=== PATIENT | male | born 1945 | race Caucasian/White ===

== ENCOUNTER → 2017-07-17 | Outpatient (CLI) | payer OTHER ==
[~2017-07-17] MED LIST: AMT24 PO; ASPCH81X PO; BUSP5TAB59 PO; CARB10TA4 PO; CARB25TA12 PO; CHOL20007 PO; CLC100X PO; CLON1TAB3 PO; CYAN500T13 PO; DOCU-94 PO; DULO60CA44 PO; ESCI1TAB10 PO; FLM4 PO; FOLI1TAB7 PO; GABA400C PO; GLIM1TAB2 PO; GLIP5TAB3 PO; IBUP-1050 PO; LACT10SO17 PO; LEVO25TA5 PO; MELA3TAB PO; MELATAB2 PO; METF1000 PO; MISCCAP80 PO; NF656 TD; NRT/25 PO; OXYBUTYNIN PO; PRLSR20 PO; PRMT25 PO; PROM25TA PO; RIVASTIGMINE PO; SENN-63 PO; SIMV80TA2 PO; TAPE1TAB9 PO; [UNRECOGNIZED DRUG - CODE] PO
--- NOTE | 2017-07-17 12:01 | DIAGNOSTIC IMAGING REPORT ---
Bilateral inguinal ultrasound CLINICAL HISTORY: K40.90 Inguinal [id number] left inguinal pain COMPARISON STUDY: No previous studies for comparison. FINDINGS: There is a fat-containing right inguinal hernia. No left femoral hernia is visualized. IMPRESSION: 1. Fat-containing right inguinal hernia 2. No left-sided inguinal hernias are visualized ultrasonographically Electronically signed by: Reynaldo Vizcaino M.D. 07/17/2017 12:00 PM Dictated Date/Time: 07/17/2017 11:58 AM
== END | disposition home or self-care (01) ==
LOC: C.ULTR 11:00
PROVIDERS: ATTEND Surgery
DX: K40.90 Unilateral inguinal hernia, without obstruction or gangrene, not specified as recurrent (principal); R10.30 Lower abdominal pain, unspecified

== ENCOUNTER → 2017-08-01 | Day surgery (SDC) | payer OTHER ==
[2017-07-17 09:51] VITALS: Ht 185.4 cm; Wt 87.5 kg
--- NOTE | 2017-07-17 10:47 | PAT Medication Instructions ---
Service Date Jul 17, 2017. Current Home Medication List Aspirin (Aspirin Chewable), 81 MG PO QAM Buspirone Hcl (Buspirone Hcl), 1 TAB PO TID Carbidopa/Levodopa (Sinemet 10MG/100MG), 1 TAB PO AM/PM Carbidopa/Levodopa (Sinemet 25MG/100MG), 1.5 TAB PO NOON Cholecalciferol (Vitamin D3), 1 TAB PO QAM Clonazepam (Klonopin), 1 MG PO HS Cyanocobalamin (Vitamin B12 500MCG), 500 MCG PO QAM Docusate Sodium (Colace), 1 CAP PO HS Duloxetine Hcl (Cymbalta), 60 MG PO QPM Ferrous Sulfate Dried (Eql Slow Release Iron), 160 MG PO QAM Folic Acid (Folvite), 1 MG PO QAM Glimepiride (Glimepiride), 1 TAB PO QAM Ibuprofen (Advil), 800 MG PO PRN Levothyroxine Sodium (Levothyroxine Sodium), 1 TAB PO HS Lubiprostone (Amitiza), 24 MCG PO HS Melatonin (Melatonin Maximum Strengt), 1 TAB PO HS Metformin Hcl (Glucophage), 1,000 MG PO BID Midodrine (Midodrine HCl), 2.5 MG PO AM/NOON Omeprazole (Prilosec), 40 MG PO QAM Probiotic Product (Probiotic), 1 TAB PO NOON Sennosides (Senokot), 1 TAB PO HS Simvastatin (Zocor), 80 MG PO HS Tamsulosin HCl (Tamsulosin HCl), 0.4 MG PO HS [Oxybutynin], 5 MG PO HS [Rivastigmine], 4.5 MG PO BID Medication Instructions For Your Scheduled Surgery -Contact your neurologist for instructions: Midodrine (Midodrine HCl), 2.5 MG PO AM/NOON - Contact your surgeon for instructions for: Ibuprofen (Advil), 800 MG PO PRN - Hold the following medications 5 days prior to surgery per your surgeon's instructions: Aspirin (Aspirin Chewable), 81 MG PO QAM - Hold the following medications 48 hours prior to surgery: Metformin Hcl (Glucophage), 1,000 MG PO BID - Hold the following medications the morning of surgery: Ferrous Sulfate Dried (Eql Slow Release Iron), 160 MG PO QAM Folic Acid (Folvite), 1 MG PO QAM Glimepiride (Glimepiride), 1 TAB PO QAM Cyanocobalamin (Vitamin B12 500MCG), 500 MCG PO QAM Cholecalciferol (Vitamin D3), 1 TAB PO QAM Carbidopa/Levodopa (Sinemet 10MG/100MG), 1 TAB PO AM/PM (per surgeon's instructions) - Take the following medications the morning of surgery with a sip of water: Omeprazole (Prilosec), 40 MG PO QAM Buspirone Hcl (Buspirone Hcl), 1 TAB PO TID [Rivastigmine], 4.5 MG PO BID - Take the following medications as scheduled the night before surgery: [Oxybutynin], 5 MG PO HS Sennosides (Senokot), 1 TAB PO HS Simvastatin (Zocor), 80 MG PO HS Tamsulosin HCl (Tamsulosin HCl), 0.4 MG PO HS Clonazepam (Klonopin), 1 MG PO HS Buspirone Hcl (Buspirone Hcl), 1 TAB PO TID Levothyroxine Sodium (Levothyroxine Sodium), 1 TAB PO HS Lubiprostone (Amitiza), 24 MCG PO HS Melatonin (Melatonin Maximum Strengt), 1 TAB PO HS Probiotic Product (Probiotic), 1 TAB PO NOON Docusate Sodium (Colace), 1 CAP PO HS Duloxetine Hcl (Cymbalta), 60 MG PO QPM [Rivastigmine], 4.5 MG PO BID Carbidopa/Levodopa (Sinemet 10MG/100MG), 1 TAB PO AM/PM Carbidopa/Levodopa (Sinemet 25MG/100MG), 1.5 TAB PO NOON If you have any questions please call us at [phone] or [phone] or [phone]
[~2017-08-01] VITALS: Ht 185.4 cm; Wt 87.5 kg
[~2017-08-01] MED LIST changes: +ATROPINE SULFATE 0.1 MG/ML 5ML SYR IV PRN; +BUPIVACAINE/EPINEPHRINE 0.5% MPF 1:200,000 30 ML VIAL ONE; -CARB10TA4 PO; +CARB10TA5 PO; -CLC100X PO; +CLINDAMYCIN IV 900 MG in DEXTROSE 5% 50ML 44 ML IV SCH; -CLON1TAB3 PO; +CLON1TAB4 PO; +DEXAMETHASONE SOD INJ 4 MG/ML VIAL ONE; -ESCI1TAB10 PO; +FENTANYL CITRATE INJ 50 MCG/1 ML 2 ML VIAL IV PRN; +FENTANYL CITRATE INJ 50 MCG/1 ML 2 ML VIAL ONE; -FOLI1TAB7 PO; +FOLI1TAB8 PO; -GABA400C PO; -GLIP5TAB3 PO; +HYDR-5688 PO; +HYDROCODONE/ACETAMIN 5/325MG TAB PO PRN; +KETOROLAC TROMETHAMINE 30 MG/ML VIAL IV. PRN; -LACT10SO17 PO; +LACTATED RINGER'S 1000ML 1,000 ML IV SCH; +LIDOCAINE HCL 2% 2 ML VIAL (20MG/ML) ONE; -MELA3TAB PO; -NF656 TD; -NRT/25 PO; +ONDANSETRON INJ 2 MG/ML 2 ML VIAL IV PRN; +ONDANSETRON INJ 2 MG/ML 2 ML VIAL ONE; -PROM25TA PO; +PROPOFOL IV EMULSION 10 MG/ML 20 ML VIAL IV ONE; +SODIUM CHLORIDE 0.9% 1000ML 1,000 ML IV SCH; -TAPE1TAB9 PO
[2017-08-01 07:37] VITALS: BP 151/92; PULSE 77; TEMP 36.7; O2SAT 94
--- NOTE | 2017-08-01 08:46 | History & Physical Bridge Note ---
H&P Re-Evaluation Bridge Note: I have examined the patient, reviewed the History & Physical and in the interval since the performance of the History & Physical I have noted the following changes of clinical significance: No changes noted. his us only showed a right sided hernia, none on left so we will obviously only do the right side.
--- NOTE | 2017-08-01 10:40 | Discharge Instructions ---
Discharge Instructions Date of Service Aug 01, 2017. Admission Reason for Admission: Right Inguinal Hernia, Diabetes, Parkinson's Discharge Discharge Diagnosis / Problem: Right Inguinal Hernia, Diabetes, Parkinson's Discharge Goals Goal(s): Decrease discomfort, Improve function Activity Recommendations Activity Limitations: as noted below Lifting Limitations: no more than 10 pounds Exercise/Sports Limitations: until after follow-up appointment May Resume Sexual Activity: after follow-up appointment Shower/Bathe: tomorrow Driving or Machine Use: resume 1 day after discharge . Instructions / Follow-Up Instructions / Follow-Up You may resume your Aspirin therapy tomorrow, 08/02/2017. Please follow-up with Dr. Madrid in the office in 1-2 weeks. Please call the office at [phone] to make a follow-up appointment if you do not have one already. Please call the office with any questions or concerns. Current Hospital Diet Patient's current hospital diet: Discharge Diet Recommended Diet: Regular Diet Pending Studies Studies pending at discharge: no Medical Emergencies . Who to Call and When: Medical Emergencies: If at any time you feel your situation is an emergency, please call 911 immediately. . Non-Emergent Contact Non-Emergency issues call your: Primary Care Provider, Surgeon Call Non-Emergent contact if: temperature is above 101.5, your pain is not controlled, wound has increased drainage, wound has increased redness . "Provider Documentation" section prepared by Edith Tellez. . VTE Core Measure Inpt VTE Proph given/why not?: SCD's [place] Drug Monitoring Program Search Results: patient reviewed within database, no issues identified
--- NOTE | 2017-08-01 10:47 | [facility] Operative Report ---
Operative Report Operative Date Aug 01, 2017. Pre-Operative Diagnosis Right Inguinal Hernia Post-Operative Diagnosis Same as preop Procedure(s) Performed Open Right Inguinal Hernia Repair with Mesh Surgeon Dr. Madrdi [employer] Surgeon(s) Edith Tellez PA-C Estimated Blood Loss 5 ml Findings large indirect RIH; moderate sized direct RIH Specimens None per Surgeon Anesthesia LMA Disposition Recovery Room / PACU Description of Procedure After informed consent was obtained the patient was taken to the operating room and placed in supine position. After successful placement of the laryngeal mask airway the lower groin was shaved and sterilely prepped and draped in usual fashion. An inguinal incision with 10 blade scalpel was made and carried down through the soft tissue using electrocautery. A [place] retractor was used to fence installer helper exposure. We skeletonized the external oblique aponeurosis and made a small incision in it with a new blade. Metzenbaum scissor was used to extend this through the external ring as well as for several centimeters proximally. Using primarily blunt finger dissection once we were in the inguinal canal, I used gentle traction on the cord structures and elevated them off the pubic bone and placed a Digna drain around them. There was an obvious moderate size direct inguinal hernia that was easily reducible. When we inspected the cord and cord structures there was a cord lipoma as well as a large indirect hernia sac. We used traction and small amounts of electrocautery to tease the sac and lipoma off the cord structures. Both were able to be easily dunked back into the abdominal cavity and stayed reduced. We then used a piece of polypropylene keyhole mesh as an onlay. It was secured distally to Miguel's ligament laterally along the shelving portion of Poupart ligament and medially along the midline musculature. The "arms" of the mesh were wrapped around behind the cord and cord structures and again secured underlying muscle. We used 0 Ethibond for all the suturing. When the mesh was in place it was tension free and did not appear to be impinging on the cord. We did place some Marcaine around the periphery of the mesh to help with postoperative analgesia. Thorough irrigation was performed. We closed the external oblique aponeurosis using 2-0 Vicryl in running fashion. Soft tissue was irrigated and closed using 3-0 Vicryl and 4-0 Monocryl for skin. Some additional Marcaine was injected around the skin for postoperative analgesia and skin glue used as a dressing. The patient was awaken extubated and transferred recovery in stable condition My physician's corporate law assistant was present throughout the entire case. She helped with preparation of the patient as well as retraction throughout the entire case. She also helped with wound closure including deep tissue and skin as well as placement of the dressings. I attest to the content of the Intraoperative Record and any orders documented therein. Any exceptions are noted below.
[2017-08-01 11:30] VITALS: BP 163/97; PULSE 77; TEMP 36.4; O2SAT 94
[2017-08-01 12:00] VITALS: BP 157/91; PULSE 75; TEMP 36.4; O2SAT 96
--- NOTE | 2017-08-01 12:00 | Anesthesiology Progress Note ---
Anesthesia Post Op Note Date & Time Aug 01, 2017 at 12:00 Vital Signs Pain Intensity: 0 Vital Signs Past 12 Hours Date Time Temp Pulse Resp B/P (MAP) Pulse Ox O2 Delivery O2 Flow Rate FiO2 08/01/17 11:30 36.4 77 16 163/97 94 Room Air 08/01/17 11:15 36.4 71 17 142/84 94 Room Air 08/01/17 11:05 66 17 157/97 98 Room Air 08/01/17 10:55 65 16 156/92 99 Oxymask 10 08/01/17 10:45 36.4 67 14 162/92 100 Oxymask 10 08/01/17 07:37 36.7 77 18 151/92 (111) 94 Room Air Notes Mental Status: alert / awake / arousable, participated in evaluation Pt Amnestic to Procedure: Yes Nausea / Vomiting: adequately controlled Pain: adequately controlled Airway Patency, RR, SpO2: stable & adequate BP & HR: stable & adequate Hydration State: stable & adequate Anesthetic Complications: no major complications apparent
== END | disposition home or self-care (01) ==
LOC: C.ACU 07:02
PROVIDERS: ATTEND Surgery
DX: K40.90 Unilateral inguinal hernia, without obstruction or gangrene, not specified as recurrent (principal); G20 Parkinson's disease; F03.90 Unspecified dementia, unspecified severity, without behavioral disturbance, psychotic disturbance, mood disturbance, and anxiety; I10 Essential (primary) hypertension; E87.6 Hypokalemia; E87.5 Hyperkalemia; E11.9 Type 2 diabetes mellitus without complications; K21.9 Gastro-esophageal reflux disease without esophagitis; K44.9 Diaphragmatic hernia without obstruction or gangrene; E03.9 Hypothyroidism, unspecified; D64.9 Anemia, unspecified; R26.9 Unspecified abnormalities of gait and mobility; N40.0 Benign prostatic hyperplasia without lower urinary tract symptoms; F32.9 Major depressive disorder, single episode, unspecified; Z79.82 Long term (current) use of aspirin; Z79.84 Long term (current) use of oral hypoglycemic drugs; Z79.899 Other long term (current) drug therapy